=== PATIENT | male | born 1985 | race Caucasian/White ===

== ENCOUNTER 2018-05-13 12:45 | Outpatient (CLI) | payer OTHER, SELFPAY | END 2018-05-13 12:46 | PROVIDERS: PCP Nurse Practitioner Family; Visit Provider Nurse Practitioner Adult Health | DX: G43.109 Migraine with aura, not intractable, without status migrainosus (principal) | CPT/HCPCS: 99204 ==

== ENCOUNTER 2020-04-13 18:49 | Outpatient (REF) | payer OTHER, SELFPAY ==
[2020-04-15 10:41] LABS: Hepatitis C Ab w Rflx HCV PCR Negative (Negative)
[2020-04-15 11:02] LABS: HIV-1/2 Ag & Ab Screen Negative (Negative)
== END 2020-04-13 19:09 ==
LOC: NCHCN 18:49
PROVIDERS: PCP Nurse Practitioner Family; Visit Provider Nurse Practitioner Family
DX: Z00.00 Encounter for general adult medical examination without abnormal findings (principal); R63.4 Abnormal weight loss; F41.9 Anxiety disorder, unspecified; F17.210 Nicotine dependence, cigarettes, uncomplicated; G43.109 Migraine with aura, not intractable, without status migrainosus; J30.2 Other seasonal allergic rhinitis; M54.5 Low back pain; Z11.4 Encounter for screening for human immunodeficiency virus [HIV]; Z11.59 Encounter for screening for other viral diseases
CPT/HCPCS: 80053; 86803; 87389; 85025

== ENCOUNTER 2020-12-14 19:43 | Outpatient (REF) | payer OTHER, SELFPAY ==
[2020-12-16 09:50] LABS: HBs Antibody, Quant 272.7 mIU/mL (See Note); Hepatitis B Surface Ab Positive (See Note)
[2020-12-16 10:00] LABS: Hepatitis B Surface Ag Negative (Negative)
[2020-12-16 10:53] LABS: Varicella IgG Antibody Positive (See Note)
[2020-12-16 10:58] LABS: Measles IgG Antibody Positive (See Note)
[2020-12-16 11:02] LABS: Mumps Antibody IgG Positive (See Note); Rubella IgG Ab (UVM) Positive (See Note)
[2020-12-16 11:03] LABS: Hep A Total Ab w Rflx IgM Negative (Negative)
== END 2020-12-14 19:44 | disposition home or self-care (01) ==
LOC: NCHCN 19:43
PROVIDERS: PCP Nurse Practitioner Family; Visit Provider Nurse Practitioner Family
DX: Z13.89 Encounter for screening for other disorder (principal); Z01.84 Encounter for antibody response examination; Z11.59 Encounter for screening for other viral diseases
CPT/HCPCS: 86706; 86709; 86787; 87340; 86735; 86762; 86765

== ENCOUNTER 2021-03-01 16:25 | Outpatient (REF) | payer OTHER, SELFPAY ==
[2021-03-01 20:57] LABS: TSH (W/Ref FT4) 0.83 uIU/mL (0.36-3.74)
== END 2021-03-01 16:26 | disposition home or self-care (01) ==
LOC: NCHCN 16:25
PROVIDERS: PCP Nurse Practitioner Family; Visit Provider Nurse Practitioner Family
DX: Z00.00 Encounter for general adult medical examination without abnormal findings (principal); L65.9 Nonscarring hair loss, unspecified; G43.109 Migraine with aura, not intractable, without status migrainosus; R21 Rash and other nonspecific skin eruption; B00.89 Other herpesviral infection
CPT/HCPCS: 84443